=== PATIENT | female | born 1965 | race Caucasian/White ===

== ENCOUNTER → 2018-02-05 | Outpatient (CLI) | payer BC ==
[~2018-02-05] VITALS: Ht 166.4 cm; Wt 85.3 kg
[~2018-02-05] MED LIST: MAGNESIUM250 MG PO; NASAL SPRAY30 M4 BOTH NARES; SELENIUM200 MCG PO; SUPER B COMPL400 MCG PO; TYLENOL PM EX-1 EACH PO; VITAMIN D35000 UNIT PO; WOMEN'S 50 PLU1 EACH PO
== END | disposition home or self-care (01) ==
LOC: AMB 08:23
PROC: 0DJD8ZZ Inspection of Lower Intestinal Tract, Via Natural or Artificial Opening Endoscopic (ICD-10-PCS; principal; 2018-02-05)
DX: Z12.11 Encounter for screening for malignant neoplasm of colon (principal); R10.13 Epigastric pain; Z86.19 Personal history of other infectious and parasitic diseases; Z80.8 Family history of malignant neoplasm of other organs or systems; Z83.3 Family history of diabetes mellitus; Z82.79 Family history of other congenital malformations, deformations and chromosomal abnormalities
CPT/HCPCS: J7643